=== PATIENT | male | born 1980 | race Two or more races ===

== ENCOUNTER 2020-02-14 02:51 | Emergency (ER) | payer MEDICAID ==
[~2020-02-14] VITALS: Ht 177.8 cm; Wt 77.1 kg
[2020-02-14 02:59] VITALS: BP 120/74
--- NOTE | 2020-02-14 03:12 | NUR ---
Patient discharged to home in stable condition. Written and verbal after care instructions given. Patient verbalizes understanding of instruction. Pt ambulatory with a steady gait. Pt signed homeless waiver discharge. Rx given.
== END 2020-02-14 03:14 | disposition home or self-care (01) ==
LOC: ER 02:57
DX: L02.11 Cutaneous abscess of neck (principal); Z59.0 Homelessness